=== PATIENT | male | born 1935 | race Caucasian/White ===

== ENCOUNTER → 2017-06-26 | Outpatient (CLI) | payer MEDICARE, OTHER | END | disposition home or self-care (01) | LOC: PCVCCLINIC 10:50 | DX: I65.23 Occlusion and stenosis of bilateral carotid arteries (principal); I25.10 Atherosclerotic heart disease of native coronary artery without angina pectoris; I10 Essential (primary) hypertension; E11.9 Type 2 diabetes mellitus without complications; E78.2 Mixed hyperlipidemia; R09.89 Other specified symptoms and signs involving the circulatory and respiratory systems; R07.89 Other chest pain; Z87.891 Personal history of nicotine dependence; Z79.899 Other long term (current) drug therapy; Z79.84 Long term (current) use of oral hypoglycemic drugs | CPT/HCPCS: 93005; 93880; G0463 ==

== ENCOUNTER → 2017-07-15 | Outpatient (CLI) | payer MEDICARE, OTHER ==
[~2017-07-15] MED LIST: REGADENOSON 0.4 MG/5 ML DISP.SYRIN. IV
== END | disposition home or self-care (01) ==
LOC: PCVCIMAG 08:05
DX: I25.10 Atherosclerotic heart disease of native coronary artery without angina pectoris (principal); E11.9 Type 2 diabetes mellitus without complications; I10 Essential (primary) hypertension; R07.89 Other chest pain; Z87.891 Personal history of nicotine dependence; Z79.4 Long term (current) use of insulin
CPT/HCPCS: 78452; 93017; 93306; A9500; J2785

== ENCOUNTER → 2019-02-16 | Outpatient (CLI) | payer MEDICARE, OTHER ==
--- NOTE | 2019-02-16 17:06 | PCVCIMAG ---
APPROVED REPORT Study performed: 02/16/2019 16:07:54 EXAM: Comprehensive 2D, Doppler, and color-flow Echocardiogram Patient Location: Echo lab Room #: 3Status: routine BSA: 1.72 HR: 72 bpmBP: 128/80 mmHg Rhythm: Atrial Fibrillation Other Information Study Quality: Adequate Risk Factors: Cardiac Risk Factors: HTN, Diabetes, Hyperlipidemia Indications Abnormal ECG Diabetes Atrial Fibrillation CAD Hypertension/HDD 2D Dimensions IVSd: 8.99 (7-11mm)LVOT Diam: 18.12 (18-24mm) LVDd: 40.26 mm PWd: 7.46 (7-11mm)Ascending Ao: 28.44 (22-36mm) LVDs: 29.05 (25-40mm) Left Atrium: 39.79 (27-40mm) Aortic Root: 23.16 mm LV Single Plane 4CH: 56.40 % LV Single Plane 2CH: 61.72 % Biplane EF: 60.0 % Volumes Left Atrial Volume (Systole) Single Plane 4CH: 51.42 mLSingle Plane 2CH: 73.84 mL Biplane LA Volume: 64.00 mLLA ESV Index: 37.00 mL/m2 Aortic Valve AoV Peak Harman.: 1.00 m/s AO Peak Gr.: 3.96 mmHgLVOT Max P.01 mmHg LVOT Max V: 0.87 m/s THANH Vmax: 2.25 cm2 Mitral Valve MV E Max Harman.: 0.95 m/s MV PHT: 48.43 ms MVA (PHT): 4.54 cm2 IVRT: 83.04 ms TDI E/Lateral E': 7.92E/Medial E': 10.56 Medial E' Harman.: 0.09 m/s Lateral E' Harman.: 0.12 m/s Pulmonary Valve PV Peak Harman.: 0.79 m/sPV Peak Gr.: 2.50 mmHg Tricuspid Valve TR Peak Harman.: 2.58 m/s TR Peak Gr.: 26.53 mmHg TV Vmax: 0.69 m/sPA Pressure: 34.00 mmHg Left Ventricle The left ventricle is normal size. There is normal LV segmental wall motion. There is normal left ventricular wall thickness. Left ventricular systolic function is normal. The left ventricular ejection fraction is within the normal range. LVEF is 60%. This study is not technically sufficient to allow evaluation of the LV diastolic function due to atrial fibrillation. Right Ventricle The right ventricle is normal size. The right ventricular systolic function is normal. Atria Left atrium is mildly dilated. The right atrium size is normal. Aortic Valve Aortic valve is trileaflet. The aortic valve is normal in structure and function. No aortic regurgitation is present. There is no aortic valvular stenosis. Mitral Valve The mitral valve is normal in structure. Moderate mitral regurgitation. No evidence of mitral valve stenosis. Tricuspid Valve The tricuspid valve is normal in structure. Mild to moderate tricuspid regurgitation with a PA pressure of 34 mmHg. Mild pulmonary hypertension. Pulmonic Valve The pulmonary valve is normal in structure. Mild to moderate pulmonic regurgitation. Great Vessels The aortic root is normal in size. The ascending aorta is normal in size. Aortic arch is normal in caliber. IVC is normal in size and collapses >50% with inspiration. Pericardium There is no pericardial effusion. There is no pleural effusion. <Conclusion> The left ventricle is normal size. LVEF is 60%. This study is not technically sufficient to allow evaluation of the LV diastolic function due to atrial fibrillation. The right ventricle is normal size. Left atrium is mildly dilated. Aortic valve is trileaflet. The aortic valve is normal in structure and function. There is no aortic valvular stenosis. Moderate mitral regurgitation. Mild to moderate tricuspid regurgitation with a PA pressure of 34 mmHg. Mild pulmonary hypertension. Mild to moderate pulmonic regurgitation. The aortic root is normal in size. There is no pericardial effusion.
== END | disposition home or self-care (01) ==
LOC: PCVCIMAG 14:42
PROVIDERS: ATTEND Internal Medicine Cardiovascular Disease
DX: I08.8 Other rheumatic multiple valve diseases (principal); I48.0 Paroxysmal atrial fibrillation; R94.31 Abnormal electrocardiogram [ECG] [EKG]; E78.2 Mixed hyperlipidemia; I10 Essential (primary) hypertension; I25.118 Atherosclerotic heart disease of native coronary artery with other forms of angina pectoris; I27.20 Pulmonary hypertension, unspecified; E11.9 Type 2 diabetes mellitus without complications; Z87.891 Personal history of nicotine dependence; Z79.899 Other long term (current) drug therapy; Z88.8 Allergy status to other drugs, medicaments and biological substances
CPT/HCPCS: 36415; 80061; 93005; 93306; G0463

== ENCOUNTER → 2019-02-18 | Outpatient (CLI) | payer MEDICARE, OTHER ==
[~2019-02-18] MED LIST changes: -REGADENOSON 0.4 MG/5 ML DISP.SYRIN. IV; +REGADENOSON 0.4 MG/5 ML DISP.SYRIN. IV ONE
--- NOTE | 2019-02-18 12:59 | PCVCIMAG ---
APPROVED REPORT Imaging Protocol: Rest Tc-99m/Stress Tc-99m 1 day Study performed: 02/18/2019 09:07:12 Indication: Atrial Fibrillation Patient Location: Out-Patient Stress Nurse: Nadine Coleman RN, Roxanne Reyes RN [place] Tech:Skye Karin [facility] Ht: 5 ft 3 in Wt: 150 lbs BSA: 1.71 m2 HR: 91 bpm BP: 146/84 mmHg BMI: 26.5 Rhythm: Atrial Fibrillation Medical History Medical History: CKD, CVD, HTN, Hyperlipidemia, Former Smoker Medications: Atenolol, Atorvastatin, Xarelto, Tarka Allergies: Cipro, Bee Venom Cardiac Risk Factors: Current Smoker Previous Cardiac Procedures: 2018 Cath - Moderate disease Pretest Chest Pain Characteristics: No chest pain Exercise History: Sedentary Meds Held (24 hrs): Atenolol Resting Data Rest SPECT myocardial perfusion imaging was performed in supine position 45 minutes following the intravenous injection of 10.6 mCi of Tc-99m Sestamibi. Time of rest injection: 839 Date: 02/18/2019 Administration Route: IV Administration Site: Right Wrist Pharmacologic Stress Pharmacologic stress test was performed by injecting Regadenoson 0.4 mg IV push over 10-15 seconds immediately followed by the intravenous injection of 32.8 mCi of Tc-99m Sestamibi. Time of stress injection: 944 Date: 02/18/2019 Administration Route: IV Administration Site: Right Wrist Gated Stress SPECT was performed 45 minutes after stress injection. The images were gated to evaluate regional wall motion and calculate left ventricular ejection fraction. Stress Test Details Stress Test: Pharmacologic stress testing performed using 0.4 mg of regadenoson per 5 mL given IV over 10 seconds. Reason for pharmacologic stress test: physical limitation, unsteady gait. HRMax Heart Rate (APMHR): 135 bpm Resting HR: 91 bpmTarget HR (85% APMHR): 114 bpm Max HR Achieved: 101 bpm % of APMHR: 74 Recovery HR: 93 bpm BP Resting BP: 146/84 mmHg Max BP: 147/89 mmHg Recovery BP: 131/75 mmHg ECG Resting ECG: Atrial Fibrillation Stress ECG: Atrial Fibrillation Arrhythmia: PVC's Recovery ECG: Atrial Fibrillation Clinical Reason for Termination: Completed protocol Stress Symptoms: Abdominal discomfort Symptoms resolved with caffeine.Symptoms resolved during recovery. Stress ECG Conclusion ECG: Non-ischemic Study Quality Study: Good Study Data Post stress, the left ventricular ejection was 80%.. SSS: 3 SRS: 5 SDS: 1 TID = 0.85. Perfusion No evidence of stress induced ischemia or prior myocardial infarction. Wall Motion Normal left ventricular size and function with no regional wall motion abnormalities. Nuclear Conclusion No evidence of stress induced ischemia or prior myocardial infarction. Normal left ventricular size and function with no regional wall motion abnormalities. Post stress, the left ventricular ejection was 80%. Interpreted by: Felice Bassett MD Electronically Approved: 02/18/2019 12:23:47 <Conclusion> ECG: Non-ischemic
== END | disposition home or self-care (01) ==
LOC: PCVCIMAG 08:56
PROVIDERS: ATTEND Internal Medicine Cardiovascular Disease
DX: I48.0 Paroxysmal atrial fibrillation (principal); I25.10 Atherosclerotic heart disease of native coronary artery without angina pectoris; R07.89 Other chest pain; Z87.891 Personal history of nicotine dependence; Z91.030 Bee allergy status; Z88.8 Allergy status to other drugs, medicaments and biological substances
CPT/HCPCS: 78452; 93017; A9500; J2785